=== PATIENT | female | born 1965 | race Caucasian/White ===

== ENCOUNTER 2023-06-11 20:26 | Outpatient (REF) | payer OTHER, SELFPAY ==
[2023-06-15 12:11] LABS: Age Gdln ACOG Testing Note (.); HPV Aptima Negative (Negative); IGP, Aptima HPV, rfx 16/18,45 Note (.)
== END 2023-06-11 20:27 | disposition home or self-care (01) ==
LOC: LAB 20:26
PROVIDERS: Visit Provider Obstetrics & Gynecology
DX: Z12.4 Encounter for screening for malignant neoplasm of cervix (principal)
CPT/HCPCS: 87624; G0145

== ENCOUNTER 2024-06-23 20:24 | Outpatient (REF) | payer OTHER, SELFPAY | END 2024-06-23 20:25 | disposition home or self-care (01) | LOC: LAB 20:24 | PROVIDERS: Visit Provider Obstetrics & Gynecology | DX: Z01.419 Encounter for gynecological examination (general) (routine) without abnormal findings (principal) | CPT/HCPCS: 87624; 88175 ==